=== PATIENT | female | born 2000 | race Caucasian/White ===

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

== ENCOUNTER 2021-03-01 17:53 | Emergency (ER) | payer OTHER ==
[~2021-03-01] VITALS: Ht 175.3 cm; Wt 100.0 kg
--- NOTE | 2021-03-01 18:12 | PHYS DOC ---
Past History Past Medical History: Anxiety Additional Past Medical Histor: Tremors, hereditary telangiectasia. (HILARY PACHECO APRN) Past Surgical History: No Surgical History (HILARY PACHECO APRN) Alcohol Use: None Drug Use: None (HILARY PACHECO APRN) General Adult HPI: HPI: Patient is a 21-year-old female that presents today with tachycardia and fever. Patient states this morning she woke up about 7 AM with body aches, fever and fatigue. Patient states that she went and had a rapid Covid test at the [facility] which was negative, she then presented to the urgent care here at [facility] and her heart rate was in the 140s and they sent her to the emergency department for evaluation. Patient current temperature is 102.7 orally. Patient states the last time she took anything for her fever was at 7 AM this morning when she took 2 Tylenol unknown dose. Patient states she has not been drinking any fluids today, that she has been sleeping for most of the day. Patient denies nausea vomiting, diarrhea, chest pain, or shortness of air. Patient does state that she has had to Covid vaccines she believes [employer] but has not had a booster because it has not been 6 months. (HILARY PACHECO APRN) Review of Systems: Review of Systems: Constitutional: fever or chills Eyes: Denies change in visual acuity HENT: Denies nasal congestion or sore throat Respiratory: cough;denies shortness of breath Cardiovascular: Denies chest pain or edema GI: Denies abdominal pain, nausea, vomiting, bloody stools or diarrhea : Denies dysuria Musculoskeletal: Body aches Integument: Denies rash Neurologic: Denies headache, focal weakness or sensory changes Endocrine: Denies polyuria or polydipsia Lymphatic: Denies swollen glands Psychiatric: Denies depression or anxiety (HILARY PACHECO APRN) Current Medications: Current Meds: Current Medications Medications (Trade) Dose Ordered Sig/Ashley Start Time Stop Time Status Last Admin Dose Admin Acetaminophen (Tylenol) 1,000 mg 1X ONCE 03/01/21 18:15 03/01/21 18:16 UNV (HILARY PACHECO APRN) Allergies: Allergies: Allergies Coded Allergies Type Severity Reaction Last Updated Verified No Known Drug Allergies 09/02/19 No (HILARY PACHECO APRN) Physical Exam: PE: Constitutional: Well developed, well nourished, no acute distress, non-toxic appearance. [] HENT: Normocephalic, atraumatic, bilateral external ears normal, oropharynx moist, no oral exudates, nose normal. [] Eyes: PERRLA, EOMI, conjunctiva normal, no discharge. [] Neck: Normal range of motion, no tenderness, supple, no stridor. [] Cardiovascular:Heart rate regular rhythm, no murmur [] Lungs & Thorax: Bilateral breath sounds clear to auscultation [] Abdomen: Bowel sounds normal, soft, no tenderness, no masses, no pulsatile masses. [] Skin: Warm, dry, no erythema, no rash. [] Back: No tenderness, no CVA tenderness. [] Extremities: No tenderness, no cyanosis, no clubbing, ROM intact, no edema. [] Neurologic: Alert and oriented X 3, normal motor function, normal sensory function, no focal deficits noted. [] Psychologic: Affect normal, judgement normal, mood normal. [] (HILARY PACHECO APRN) Current Patient Data: Vital Signs: Vital Signs Date Time Temp Pulse Resp B/P (MAP) Pulse Ox O2 Delivery O2 Flow Rate FiO2 03/01/21 19:35 99.2 03/01/21 18:54 103.0 142 20 142/106 (118) 99 Room Air (HILARY PACHECO APRN) EKG: EKG: EKG done at [address] Acosta at 1807 shows sinus tachycardia at a rate of 140, AK interval is 110 ms with a QT interval of 477 ms no STEMI [] (HILARY PACHECO APRN) Radiology/Procedures: Radiology/Procedures: [] (HILARY PACHECO APRN) Heart Score: C/O Chest Pain: N/A Risk Factors: Risk Factors: DM, Current or recent (<one month) smoker, HTN, HLP, family history of CAD, obesity. Risk Scores: Score 0 - 3: 2.5% MACE over next 6 weeks - Discharge Home Score 4 - 6: 20.3% MACE over next 6 weeks - Admit for Clinical Observation Score 7 - 10: 72.7% MACE over next 6 weeks - Early Invasive Strategies (HILARY PACHECO APRN) Course & Med Decision Making: Course & Med Decision Making Pertinent Labs and Imaging studies reviewed. (See chart for details) 1929 reassessment of patient shows patient requesting to leave, heart rate is down to 119 her oxygen saturations are 97% she states she feels better. We did get her influenza results back which were positive still awaiting the PCR Covid, did inform patient to continue to treat herself with Tylenol and/or ibuprofen as needed for fever and pain. Increase by mouth fluids while running a fever, also to take wjny-box-rjipsif cough medications to help with cough symptoms. Patient is to follow-up with her primary care physician or one of the community resources given to her for further management in 5 to 7 days if her symptoms are no better. (HILARY PACHECO APRN) Dragon Disclaimer: Dragon Disclaimer: This electronic medical record was generated, in whole or in part, using a voice recognition dictation system. (HILARY PACHECO APRN) Attending Co-Sign The patient was seen and interviewed as well as examined at the bedside. The chart was reviewed. The case was discussed. Agree with the plan of care. (MOOKIE ACOSTA DO) Departure Departure: Impression: Primary Impression: Influenza A Additional Impression: Suspected 2019 novel coronavirus infection Disposition: HOME / SELF CARE / HOMELESS Condition: STABLE Referrals: GIANNA GILLETTE (PCP) Patient Instructions: Influenza A (H1N1) Additional Instructions: Tylenol and/or ibuprofen as needed for fever and pain. Your last dose of Tylenol here was at around 5:30 PM. Increase by mouth fluids making sure you stay well-hydrated Continue to quarantine until your Covid PCR results are back. Follow-up with your primary care physician in the next 3 to 5 days if your symptoms are no better or worsen. You have been tested for or diagnosed with COVID-19. It is an infection caused by a new type of coronavirus. COVID-19 will cause cold-like or mild flu symptoms in most. It can cause more severe symptoms like problems breathing in some. There is no treatment for COVID-19. The body will clear the infection over time. Self-care will help to ease discomfort. Steps to Take: Self-Care Rest as needed. Healthy habits may help you feel better. Steps include: Choose healthy foods including fruits and vegetables. Drink water throughout the day. Get plenty of sleep each night. If you smoke, try to quit. It may ease breathing. Avoid alcohol. Keep Others Healthy The virus can spread to others. Droplets are released every time you sneeze or cough. The droplets can get into the mouth, nose, or eyes of people near you and lead to infection. To lower the chances of spreading COVID-19 to others: Stay at home until your doctor has said it is safe to leave. If you tested positive this will mean staying isolated until both of the following are true: At least 10 days have passed since the start of illness. You are free of fever for at least 72 hours without the use of medicine. During this time: - Avoid public areas, events, or transportation. Do not return to work or school until your doctor has said it is safe to do so. - Call ahead if you need to go to a medical center. Let them know you may have COVID-19. It will help them guide you where to go. They may also ask you to wear a facemask when you come to the office. - If you call for emergency medical services, let them know you may have COVID- 19. While at home: - Try to avoid close contact with others. Stay about 6 feet away. - If possible, spend most of your time in a separate room from others. - Use a face mask if you will be in close contact with others such as sharing a room or vehicle. - Have someone wipe down common surfaces in the home. Use household program manager environmental planning every day on areas like doorknobs, counters, or sinks. - Cough or sneeze into a tissue. Throw the tissue away right after use. If a tissue is not available, cough or sneeze into your elbow. - Wash your hands often. Wash them after sneezing or coughing. Use soap and water and wash for at least 20 seconds. Alcohol based hand coke still cleaner can be used if soap and water is not available. - Do not prepare food for others. Avoid sharing personal items like forks, spoons, or toothbrushes. - Avoid close contact with pets while you are sick. There is no evidence of the virus passing to pets. This is a safety step until more is known about this virus. Isolation can be frustrating. Social interaction can help. Keep in touch with friends and family through phone and tech options. You can still interact with others in your home, just keep a safe distance of about 6 feet. Follow-up: Your doctors office will check in with you to see if there are any changes in your health. You may be asked to keep track of symptoms to share with them. They will also let you know when you are clear to be in public again. Problems to Look Out For: Contact your doctor if your recovery is not going as you expect. Get emergency care if you have problems such as: - Trouble breathing - Nonstop chest pain or pressure - Changes in awareness, confusion, or problems waking - Lips or face have bluish color - Worsening of symptoms If you think you have an emergency, call for emergency medical services right away. As taken from [facility] HILARY PACHECO APRN Mar 01, 2021 18:12 MOOKIE ACOSTA DO Mar 03, 2021 14:12
[2021-03-01] MEDS ORDERED: ACETAMINOPHEN 500 MG TABLET PO ONE (18:15)
[2021-03-01 19:36] LABS: INFLUENZA A PATIENT POSITIVE (NEGATIVE); INFLUENZA B PATIENT NEGATIVE (NEGATIVE)
[2021-03-01 19:42] VITALS: BP 114/49
== END 2021-03-01 19:42 | disposition home or self-care (01) ==
LOC: ER 17:53
DX: J10.1 Influenza due to other identified influenza virus with other respiratory manifestations (principal); F41.9 Anxiety disorder, unspecified; Z20.822 Contact with and (suspected) exposure to COVID-19
CPT/HCPCS: 87804; 99283; C9803; U0003